=== PATIENT | male | born 1960 | race Caucasian/White ===

== ENCOUNTER 2017-11-26 17:03 | Emergency (ER) | payer MEDICAID ==
[~2017-11-26] VITALS: Ht 157.5 cm; Wt 103.9 kg
[2017-11-26 17:05] VITALS: BP 147/92
== END 2017-11-26 17:55 | disposition home or self-care (01) ==
LOC: ER 17:05
DX: F41.9 Anxiety disorder, unspecified (principal); R45.7 State of emotional shock and stress, unspecified; G47.00 Insomnia, unspecified; R63.0 Anorexia; E66.01 Morbid (severe) obesity due to excess calories; I10 Essential (primary) hypertension; E78.5 Hyperlipidemia, unspecified
CPT/HCPCS: 99284; A4606; Z7610